=== PATIENT | female | born 1940 | race Caucasian/White ===

== ENCOUNTER 2018-07-12 13:41 | Inpatient (IN) | END 2018-07-14 22:20 | disposition home or self-care (01) | DRG 871 ==

== ENCOUNTER 2018-08-09 05:29 | Observation (INO) | END 2018-08-12 19:05 | disposition home health service (06) ==

== ENCOUNTER 2018-11-14 14:34 | Emergency (ER) | payer MEDICARE, OTHER ==
[~2018-11-14] VITALS: Ht 175.3 cm; Wt 70.0 kg
[~2018-11-14 14:34] MED LIST: ASPI-903 PO; ATEN-51 PO; BROVANA NEB; DOCU-216 PO; FLUC200T52 PO; FURO-109 PO; LEVO500T48 PO; LORA10CA PO; MED4DP PO; MIRA50TA PO; OMEP20CA16 PO; POLY17PO6 PO; POTA20TA96 PO; ROSU10TA55 PO; TRAM50TA PO
[2018-11-14 14:44] VITALS: Ht 175.3 cm; Wt 70.0 kg
[2018-11-14] MEDS ORDERED: BENA20TA4 PO (15:54)
[2018-11-14] MEDS ORDERED: CIPR-193 PO (15:55)
[2018-11-14] MEDS ORDERED: MINERAL OIL 133 ML ENEMA PR ONE (16:00)
--- NOTE | 2018-11-14 16:35 | ERD ---
ER Documentation Chief Complaint Chief Complaint Complains of abdominal pain and constipation x3 days HPI 78-year-old female with a history of HTN and chronic back pain presenting complaining of constipation for the past 8 days. She is passing gas but she is unable to have a bowel movement. She feels like there is a rock sitting in her rectum. She has had multiple previous episodes of constipation. They think it is because she is always in a wheelchair. She denies any fevers or chills. No abdominal pain, nausea, vomiting. She is currently on Cipro for a UTI. She has tried suppositories, senna, and a fleets enema at home without any subsequent bowel movement. ROS All systems reviewed and are negative except as per history of present illness. Medications Home Meds Active Scripts Lactulose* (Lactulose*) 20 Gm/30 Ml Solution, 20 GM PO BID PRN for CONSTIPATION, #240 ML Prov:CAMERON DUNBAR MD 11/14/18 Atenolol* (Atenolol*) 25 Mg Tablet, 25 MG PO DAILY, #30 TAB 2 Refills Prov:TAMI WEI 08/11/18 Reported Medications Ciprofloxacin Hcl* (Ciprofloxacin Hcl*) 250 Mg Tablet, 250 MG PO BID, #14 TAB STOP DATE 11/15/18 11/14/18 Benazepril Hcl* (Benazepril Hcl*) 20 Mg Tablet, 20 MG PO DAILY, #30 TAB 11/14/18 Mirabegron (Myrbetriq) 50 Mg Tab.er.24h, 50 MG PO DAILY, TAB 08/09/18 Tramadol Hcl* (Ultram*) 50 Mg Tablet, 50 MG PO Q6H PRN for PAIN, TAB 08/09/18 Aspirin* (Aspirin* Chew) 81 Mg Tab.chew, 81 MG PO DAILY, TAB.CHEW 07/12/18 Rosuvastatin Calcium* (Crestor*) 10 Mg Tablet, 10 MG PO QHS, #30 TAB 07/12/18 Loratadine* (Claritin*) 10 Mg Capsule, 10 MG PO DAILY, CAP 07/12/18 Omeprazole* (Omeprazole*) 20 Mg Capsule.dr, 20 MG PO AC BREAKFAST, #30 CAP 07/12/18 Discontinued Scripts Fluconazole* (Fluconazole*) 200 Mg Tablet, 200 MG PO DAILY for 8 Days, #8 TAB Prov:TAMI WEI. 08/11/18 Polyethylene Glycol* (Miralax*) 17 Gm Powd.pack, 17 GM PO DAILY, #30 PACKET 2 Refills Prov:TAMI WEI. 08/11/18 Methylprednisolone* (Medrol* DOSE PACK) 4 Mg/Dose-Pack Tab.ds.pk, 4 MG PO . DIRECTED for 1 Day, #1 PACKET Prov:TAMI WEI. 08/11/18 Potassium Chloride* (Potassium Chloride*) 20 Meq Tablet.er, 20 MEQ PO DAILY for 5 Days, #5 TAB.SA Prov:TAMI WEI. 08/11/18 Furosemide* (Lasix*) 40 Mg Tablet, 40 MG PO DAILY for 5 Days, #5 TAB Prov:TAMI WEI. 08/11/18 Docusate Sodium (Dok) 100 Mg Capsule, 100 MG PO Q12 for 30 Days, #30 CAP 2 Refills Prov:TAMI WEI. 08/11/18 Arformoterol Tartrate* (Brovana* Neb) 2 Ml Nebu, 2 ML NEB Q12H RESP THERAPY, #30 DOSE 2 Refills Prov:TAMI WEI. 08/11/18 Levofloxacin* (Levaquin*) 500 Mg Tablet, 500 MG PO DAILY@06 for 8 Days, #8 TAB Prov:TAMI WEI. 08/11/18 Allergies Allergies: Coded Allergies: No Known Allergy (Unverified , 11/14/18) PMhx/Soc History of Surgery: Yes (hysterectomy, appendectomy) Anesthesia Reaction: Yes (yes per son but not sure what type of reaction) Hx Neurological Disorder: Yes (Spinal Stenosis) Hx Respiratory Disorders: Yes (interstitial lung dse) Hx Cardiac Disorders: Yes (weak heart per son) Hx Psychiatric Problems: No Hx Miscellaneous Medical Probl: No Hx Alcohol Use: No Hx Substance Use: No Hx Tobacco Use: No Smoking Status: Never smoker FmHx Family History: No diabetes Physical Exam Vitals Vital Signs Date Temp Pulse Resp B/P (MAP) Pulse Ox O2 O2 Flow FiO2 Time Delivery Rate 11/14/18 98.2 74 18 130/68 100 Room Air 21:31 (88) 11/14/18 98.2 79 20 126/63 100 Room Air 20:37 (84) 11/14/18 98.2 89 20 140/70 94 Room Air 19:56 (93) 11/14/18 98.2 85 20 148/76 94 Room Air 18:43 (100) 11/14/18 99 18 132/93 98 Room Air 18:13 (106) 11/14/18 98.8 83 20 128/69 97 14:44 (88) Physical Exam Const: No acute distress Head: Atraumatic Eyes: Normal Conjunctiva ENT: Normal External Ears, Nose and Mouth. Neck: Full range of motion. No meningismus. Resp: Clear to auscultation bilaterally Cardio: Regular rate and rhythm, no murmurs Abd: Soft, non tender, non distended. No masses. Normal bowel sounds Skin: No petechiae or rashes Back: No midline or flank tenderness Ext: No cyanosis, or edema Neur: Awake and alert Psych: Normal Mood and Affect Result Diagram: 11/14/18 5785 Results 24 hrs Laboratory Tests Test 11/14/18 15:57 Sodium Level 138 mmol/L Potassium Level 4.2 mmol/L Chloride Level 105 mmol/L Carbon Dioxide Level 24 mmol/L Anion Gap 9 Blood Urea Nitrogen 21 mg/dl Creatinine 0.75 mg/dl Est Glomerular Filtrat Rate mL/min mL/min Glucose Level 113 mg/dl Calcium Level 8.9 mg/dl Current Medications Medications Dose Sig/Gabbi Start Time Status Last (Trade) Ordered Route PRN Stop Time Admin Dose Reason Admin Mineral Oil 133 ml ONCE ONCE 11/14/18 DC 11/14/18 (Fleet NV 16:00 16:00 Mineral Oil 11/14/18 16:01 Enema) Ondansetron 4 mg BRIDGE ORDER 11/14/18 HCl (Zofran PRN IV 21:00 Inj) NAUSEA AND/OR 11/15/18 20:59 VOMITING 650 mg ER BRIDGE 11/14/18 Acetaminophen PRN PO MILD 21:00 (Tylenol PAIN(1-3)OR 11/15/18 20:59 Tab) ELEVATED TEMP Procedures/MDM EMERGENT LABS AND DIAGNOSTIC STUDIES: Lab Results above were reviewed and interpreted by me. BMP: no e/o electrolyte abnormality, severe acidosis, alkalosis, renal failure, diabetic ketoacidosis Radiology: X-ray Abdomen 1V: Fecal filled right colon Initial Nursing notes reviewed. Previous Medical Records requested via the Electronic Health Record. EMERGENCY DEPARTMENT COURSE / MEDICAL DECISION MAKING: Patient is presenting with constipation with no signs of acute surgical abdomen on exam. Vitals are stable. Labs did not show any significant abnormalities. Mineral oil enema was given without successful bowel movement. Soapsuds enema was also done without subsequent bowel movement. I tried manual disimpaction b ut the stool seems to be too far up. Patient would rather go home rather than be admitted. I recommended using lactulose for which I gave a prescription. If in 24 hours, her symptoms are worsening, she was advised to return to the ER for reevaluation. Patient's blood pressure was elevated (>120/80) but appears stable without evidence of hypertensive emergency or urgency. The patient was counseled about the risks of hypertension and urged to pursue outpatient monitoring and therapy within a week with their primary care physician. Departure Diagnosis: Primary Impression: Constipation Constipation type: other constipation type Qualified Codes: K59.09 - Other constipation Condition: Stable CAMERON DUNBAR MD Nov 14, 2018 16:35
[2018-11-14] MEDS ORDERED: ACETAMINOPHEN 325 MG TAB PO PRN (21:00)
[2018-11-14] MEDS ORDERED: ONDANSETRON 4 MG INJ IV PRN (21:00)
[2018-11-14] MEDS ORDERED: LACT20SO2 PO (21:24)
[2018-11-14 21:31] VITALS: BP 130/68; PULSE 74; RESP 18
== END 2018-11-14 21:49 | disposition home or self-care (01) ==
LOC: E/R 14:34 → CANBEDREQ 11-16 19:56
DX: K59.09 Other constipation (principal); I10 Essential (primary) hypertension; Z79.82 Long term (current) use of aspirin
CPT/HCPCS: 74018; 80048; J2405